=== PATIENT | male | born 1995 | race Caucasian/White ===

== ENCOUNTER 2017-07-13 10:26 | Emergency (ER) | payer OTHER ==
[~2017-07-13] VITALS: Ht 182.9 cm; Wt 81.5 kg
[2017-07-13 10:27] VITALS: BP 160/56; PULSE 57; RESP 18; TEMP 98.5; O2SAT 100
[2017-07-13] MEDS ORDERED: KETOROLAC TROMETHAMINE 30 MG/ML (IVP) VIAL IVP ONE (11:30)
[2017-07-13] MEDS ORDERED: SODIUM CHLORIDE 0.9% FLUSH 10 ML FLUSH IV FLUSH PRN (11:30)
--- NOTE | 2017-07-13 11:33 | PD ---
HPI Chief Complaint: Back/ Neck Pain or Injury Time Seen by Provider: 11:15 Travel History International Travel<30 days: No Contact w/Intl Traveler<30days: No Traveled to known affect area: No History of Present Illness HPI 21-year-old male presents emergency Department with complaint of pain in his back and chest with breathing only since this morning. Said he had similar symptoms 3 weeks to a month ago that subsided. Denies recent illness with nasal congestion, cough, sore throat, fever, ear pain, vomiting. Reports shortness of breath. Denies heart palpitations. Denies radiation of pain. Denies hemoptysis. He has history of DVT/PE, anticoagulant therapy, recent travel, recent surgery. Denies history of asthma, tobacco use, wheezing. Describes the pain as a pinching sensation. Rates the pain 6/10. Pain is worse with breathing and walking. Pain is decreased while at rest. Has not taken any medications or tried any treatments to alleviate his symptoms. Does not have an established primary care provider. Denies past medical history. No known allergies. Has no other medical complaints. No other modifying factors or associated signs and symptoms. PFSH Past Medical History Medical History: Denies Significant Hx Diminished Hearing: No ?: Not Past Surgical History Surgical History: No Previous Surgery Social History Alcohol Use: Yes Tobacco Use: No Substance Use: No Allergies-Medications (Allergen,Severity, Reaction): Coded Allergies: No Known Allergies (Unverified , 07/13/17) Reported Meds & Prescriptions Reported Meds & Active Scripts Active No Active Prescriptions or Reported Medications Review of Systems Except as stated in HPI: all other systems reviewed are Neg Physical Exam Narrative GENERAL: Well-nourished, well-developed male patient, in no acute distress SKIN: Warm and dry. HEAD: Atraumatic. Normocephalic. EYES: Pupils equal and round. No scleral icterus. No injection or drainage. ENT: Mucosa pink and moist. NECK: Trachea midline. CHEST: Left chest with reproducible chest wall tenderness; no crepitance or deformity. No retractions or use of accessory muscles. CARDIOVASCULAR: Regular rate and rhythm. No murmur appreciated. RESPIRATORY: No accessory muscle use. Clear to auscultation; decreased breath sounds to left lower lobe when compared to the right. No retractions or tachypnea. GASTROINTESTINAL: Abdomen soft, non-tender, nondistended. Hepatic and splenic margins not palpable. Bowel sounds are active 4 quadrants. MUSCULOSKELETAL: No obvious deformities. No clubbing. No cyanosis. No edema. BACK: No reproducible tenderness to the musculature of bilateral upper and mid back. NEUROLOGICAL: Awake and alert. Oriented 3. No obvious cranial nerve deficits. Motor grossly within normal limits. Normal speech. Moves all extremities. 5/5 strength to all extremities. PSYCHIATRIC: Appropriate mood and affect; insight and judgment normal. Data Data Last Documented VS Vital Signs Date Time Temp Pulse Resp B/P (MAP) Pulse Ox O2 Delivery O2 Flow Rate FiO2 07/13/17 10:27 98.5 57 18 160/56 (90) 100 Room Air Orders Orders Basic Metabolic Panel (Bmp) (07/13/17 11:30) Complete Blood Count With Diff (07/13/17 11:30) Iv Access Insert/Monitor (07/13/17 11:30) Sodium Chloride 0.9% Flush (Ns Flush) (07/13/17 11:30) Chest, Single Ap (07/13/17 11:30) Ketorolac Inj (Toradol Inj) (07/13/17 11:30) D-Dimer (07/13/17 11:30) Labs Laboratory Tests Test 07/13/17 11:30 White Blood Count 7.6 TH/MM3 Red Blood Count 5.31 MIL/MM3 Hemoglobin 15.7 GM/DL Hematocrit 46.1 % Mean Corpuscular Volume 86.8 FL Mean Corpuscular Hemoglobin 29.5 PG Mean Corpuscular Hemoglobin Concent 34.0 % Red Cell Distribution Width 12.8 % Platelet Count 263 TH/MM3 Mean Platelet Volume 7.8 FL Neutrophils (%) (Auto) 62.5 % Lymphocytes (%) (Auto) 28.2 % Monocytes (%) (Auto) 7.6 % Eosinophils (%) (Auto) 1.3 % Basophils (%) (Auto) 0.4 % Neutrophils # (Auto) 4.7 TH/MM3 Lymphocytes # (Auto) 2.1 TH/MM3 Monocytes # (Auto) 0.6 TH/MM3 Eosinophils # (Auto) 0.1 TH/MM3 Basophils # (Auto) 0.0 TH/MM3 CBC Comment DIFF FINAL Differential Comment D-Dimer Quantitative (PE/DVT) LESS THAN 0.19 MG/L FEU Blood Urea Nitrogen 14 MG/DL Creatinine 0.83 MG/DL Random Glucose 101 MG/DL Calcium Level 9.3 MG/DL Sodium Level 137 MEQ/L Potassium Level 3.7 MEQ/L Chloride Level 104 MEQ/L Carbon Dioxide Level 24.6 MEQ/L Anion Gap 8 MEQ/L Estimat Glomerular Filtration Rate 117 ML/MIN MDM Medical Decision Making Medical Screen Exam Complete: Yes Emergency Medical Condition: Yes Medical Record Reviewed: Yes Differential Diagnosis Pneumonia, PE, pleuritic chest pain, chest wall pain, pleurisy, costochondritis Narrative Course 21-year-old male with pleuritic type chest pain and back pain on inspiration. I discussed the patient with Dr. scout johnson, my attending physician, and she agrees with plan of care. Chest x-ray, CBC, BMP, d-dimer ordered. Toradol administered in the ER. 1250: Chest x-ray with no acute findings. CBC and CMP unremarkable. D-dimer less than 0.19. Dr. Rodrigez evaluate the patient and agrees the patient is stable for discharge and recommended Deltasone for home. Ibuprofen and Deltasone prescribed for home. Instructed patient to follow up with primary care provider. Patient verbalizes understanding and agreement with treatment plan. Patient is medically cleared and stable for discharge. Discussed reasons to return to the emergency department. Patient agrees with treatment plan. The patients vital signs are stable and the patient is stable for outpatient follow-up and treatment. Patient discharged home, stable and in no acute distress. Diagnosis Primary Impression: Pleuritic pain Referrals: Primary Care Physician Patient Instructions: Chest Wall Pain (ED), General Instructions Additional Instructions: Deltasone as prescribed Ibuprofen or Tylenol instructed nothing for pain Avoid aggravating activity Follow-up with primary care provider Return to the emergency department immediately for worsening of symptoms Med/Other Pt SpecificInfo: Prescription(s) given Scripts Prednisone (Deltasone) 20 Mg Tab 40 MG PO DAILY for 5 Days, #10 TAB 0 Refills Prov: Olya Cordova 07/13/17 Ibuprofen (Ibuprofen) 800 Mg Tab 800 MG PO Q6HR Y for PAIN, #30 TAB 0 Refills Prov: Olya Cordova 07/13/17 Disposition: 01 DISCHARGE HOME Condition: Stable Olya Cordova Jul 13, 2017 11:33
[2017-07-13 12:03] LABS: AUTOMATED NEUTROPHIL # 4.7 TH/MM3 (1.8-7.7); BASOPHIL % 0.4 % (0.0-2.0); EOSINOPHIL # 0.1 TH/MM3 (0-0.4); EOSINOPHIL % 1.3 % (0.0-4.0); HEMATOCRIT 46.1 % (39.0-51.0); HEMOGLOBIN 15.7 GM/DL (13.0-17.0); LYMPH % 28.2 % (9.0-44.0); LYMPHOCYTE # 2.1 TH/MM3 (1.0-4.8); MEAN CELL VOLUME 86.8 FL (80.0-100.0); MEAN CORPUSCULAR HEMOGLOBIN 29.5 PG (27.0-34.0); MEAN PLATELET VOLUME 7.8 FL (7.0-11.0); MONO % 7.6 % (0.0-8.0); MONOCYTE # 0.6 TH/MM3 (0-0.9); NEUT % 62.5 % (16.0-70.0); PLATELET COUNT 263 TH/MM3 (150-450); RED BLOOD COUNT 5.31 MIL/MM3 (4.50-5.90); RED CELL DISTRIBUTION WIDTH 12.8 % (11.6-17.2); WHITE BLOOD COUNT 7.6 TH/MM3 (4.0-11.0)
--- NOTE | 2017-07-13 12:22 | RADRPT ---
EXAM DATE/TIME: 07/13/2017 11:47 [facility] COMPARISON: No previous studies available for comparison. INDICATIONS : Back pain, short of breath MEDICAL HISTORY : None. SURGICAL HISTORY : None. ENCOUNTER: Initial ACUITY: 2 days PAIN SCORE: 0/10 LOCATION: Bilateral chest FINDINGS: A single view of the chest demonstrates the lungs to be symmetrically aerated without evidence of mas s, infiltrate or effusion. The cardiomediastinal contours are unremarkable. Osseous structures are intact. CONCLUSION: No acute disease. Donny Morfin MD on July 13, 2017 at 12:19 Board Certified Radiologist. This report was verified electronically.
[2017-07-13 12:27] LABS: BICARBONATE 24.6 MEQ/L (21.0-32.0); CALCIUM 9.3 MG/DL (8.5-10.1); CREATININE 0.83 MG/DL (0.60-1.30)
[2017-07-13] MEDS ORDERED: PRED-503 PO (12:52)
[2017-07-13] MEDS ORDERED: IBUP800T23 PO (12:52)
--- NOTE | 2017-07-13 12:56 | PD ---
Physical Exam Date Seen by Provider: Jul 13, 2017 Narrative This patient presents with pain on his left mid back for the last 3 weeks. Data Data Last Documented VS Vital Signs Date Time Temp Pulse Resp B/P (MAP) Pulse Ox O2 Delivery O2 Flow Rate FiO2 07/13/17 10:27 98.5 57 18 160/56 (90) 100 Room Air Orders Orders Basic Metabolic Panel (Bmp) (07/13/17 11:30) Complete Blood Count With Diff (07/13/17 11:30) Iv Access Insert/Monitor (07/13/17 11:30) Sodium Chloride 0.9% Flush (Ns Flush) (07/13/17 11:30) Chest, Single Ap (07/13/17 11:30) Ketorolac Inj (Toradol Inj) (07/13/17 11:30) D-Dimer (07/13/17 11:30) Labs Laboratory Tests Test 07/13/17 11:30 White Blood Count 7.6 TH/MM3 Red Blood Count 5.31 MIL/MM3 Hemoglobin 15.7 GM/DL Hematocrit 46.1 % Mean Corpuscular Volume 86.8 FL Mean Corpuscular Hemoglobin 29.5 PG Mean Corpuscular Hemoglobin Concent 34.0 % Red Cell Distribution Width 12.8 % Platelet Count 263 TH/MM3 Mean Platelet Volume 7.8 FL Neutrophils (%) (Auto) 62.5 % Lymphocytes (%) (Auto) 28.2 % Monocytes (%) (Auto) 7.6 % Eosinophils (%) (Auto) 1.3 % Basophils (%) (Auto) 0.4 % Neutrophils # (Auto) 4.7 TH/MM3 Lymphocytes # (Auto) 2.1 TH/MM3 Monocytes # (Auto) 0.6 TH/MM3 Eosinophils # (Auto) 0.1 TH/MM3 Basophils # (Auto) 0.0 TH/MM3 CBC Comment DIFF FINAL Differential Comment D-Dimer Quantitative (PE/DVT) LESS THAN 0.19 MG/L FEU Blood Urea Nitrogen 14 MG/DL Creatinine 0.83 MG/DL Random Glucose 101 MG/DL Calcium Level 9.3 MG/DL Sodium Level 137 MEQ/L Potassium Level 3.7 MEQ/L Chloride Level 104 MEQ/L Carbon Dioxide Level 24.6 MEQ/L Anion Gap 8 MEQ/L Estimat Glomerular Filtration Rate 117 ML/MIN [facility] Supervised Visit with EZEKIEL: Yes Narrative Course I, Dr. Rodrigez, have reviewed the advance practice practitioner's documentation and am in agreement, met with the patient face to face, made the diagnosis, and the medical decision making was done by me. *My assessment and Findings: Awake and alert and in no distress. Vital Signs Date Time Temp Pulse Resp B/P (MAP) Pulse Ox O2 Delivery O2 Flow Rate FiO2 07/13/17 10:27 98.5 57 18 160/56 (90) 100 Room Air Please see Olya Cordova NP's note for results of laboratory and radiographic evaluation, ED course, final diagnosis and disposition Scripts Prednisone (Deltasone) 20 Mg Tab 40 MG PO DAILY for 5 Days, #10 TAB 0 Refills Prov: Olya Cordova 07/13/17 Ibuprofen (Ibuprofen) 800 Mg Tab 800 MG PO Q6HR Y for PAIN, #30 TAB 0 Refills Prov: Olya Cordova 07/13/17 Shirley Rodrigez MD Jul 13, 2017 12:56
== END 2017-07-13 13:09 | disposition home or self-care (01) ==
LOC: NEPD 10:26
DX: M54.9 Dorsalgia, unspecified (principal); R07.89 Other chest pain; R06.02 Shortness of breath; Z86.718 Personal history of other venous thrombosis and embolism; Z86.711 Personal history of pulmonary embolism
CPT/HCPCS: 71010; 80048; 85025; 85379; 96374; 99284; J1885